=== PATIENT | male | born 1995 | race Caucasian/White ===

== ENCOUNTER 2020-05-03 07:54 | Emergency (ER) | payer OTHER ==
--- NOTE | 2020-05-03 08:13 | EDM.PDOC ---
ED HPI GENERAL MEDICAL PROBLEM - General Chief Complaint: Upper Extremity Injury/Pain Stated Complaint: HURT SHOULDERS Time Seen by Provider: 05/03/20 08:12 Source of Information: Reports: Patient, RN, RN Notes Reviewed History Limitations: Reports: No Limitations - History of Present Illness INITIAL COMMENTS - FREE TEXT/NARRATIVE: Pt presents to ER from NG duty at [facility] with c/o injury and pain to left shoulder the occurred when his slipped on Rodolfo's Ladder and caught himself with his arms pulled up overhead. Now his right shoulder is a little sore, but he cannot move the left shoulder without pain. The left shoulder cannot be raised above the breast level without severe pain. The pain radiates from the shoulder joint into the deltoid muscle region down the upper arm. Denies numbness or tingling. Denies any prior history of shoulder injury. Onset: Today, Sudden Duration: Constant Location: Reports: Upper Extremity, Left Quality: Reports: Ache Severity: Severe Improves with: Reports: Immobilization Worsens with: Reports: Movement Context: Reports: Activity, Exercise Associated Symptoms: Reports: No Other Symptoms Left Shoulder Pain Score (Numeric/FACES): 6 - Related Data Allergies Allergy/AdvReac Type Severity Reaction Status Date / Time No Known Allergies Allergy Verified 05/03/20 08:03 Home Meds: Home Meds . [No Known Home Meds] 05/03/20 [History] Past Medical History - Past Health History Medical/Surgical History: Denies Medical/Surgical History HEENT History: Reports: None Cardiovascular History: Reports: None Respiratory History: Reports: None Gastrointestinal History: Reports: None Genitourinary History: Reports: None Musculoskeletal History: Reports: None Neurological History: Reports: None Psychiatric History: Reports: None Endocrine/Metabolic History: Reports: None Hematologic History: Reports: None Immunologic History: Reports: None Oncologic (Cancer) History: Reports: None Dermatologic History: Reports: None - Infectious Disease History Infectious Disease History: Reports: None - Past Surgical History Head Surgeries/Procedures: Reports: None Social & Family History - Family History Family Medical History: Noncontributory - Tobacco Use Smoking Status *Q: Current Every Day Smoker Years of Tobacco use: 1 Packs/Tins Daily: 0.5 - Caffeine Use Caffeine Use: Reports: None - Recreational Drug Use Recreational Drug Use: No - Living Situation & Occupation Occupation: Employed Review of Systems - Review of Systems Review Of Systems: Comprehensive ROS is negative, except as noted in HPI. ED EXAM, GENERAL - Physical Exam Exam: See Below Exam Limited By: No Limitations General Appearance: Alert, WD/WN, No Apparent Distress Head: Atraumatic, Normocephalic Neck: Normal Inspection, Non-Tender, Full Range of Motion Respiratory/Chest: No Respiratory Distress Cardiovascular: Normal Peripheral Pulses Back Exam: Normal Inspection, Full Range of Motion Extremities: Normal Capillary Refill, Arm Pain (Left shoulder with mild generalized tenderness, decreased ROM, positive impingment sign, significant pain with abduction beyond horizontal. No visible swelling, bruising, redness, or deformity.). No: Joint Swelling Neurological: Alert, Oriented, CN II-XII Intact, Normal Cognition, Normal Gait, No Motor/Sensory Deficits Psychiatric: Normal Affect, Normal Mood Skin Exam: Warm, Dry, Intact, Normal Color, No Rash Course - Vital Signs Last Recorded V/S: Last Vital Signs Temp 98.6 F 05/03/20 08:03 Pulse 84 05/03/20 08:03 Resp 16 05/03/20 08:03 BP 138/76 05/03/20 08:03 Pulse Ox 100 05/03/20 08:03 - Radiology Interpretation Free Text/Narrative:: XR Left Shoulder: no acute process per Rad. report. Departure - Departure Time of Disposition: 08:42 Disposition: Home, Self-Care 01 Condition: Good Clinical Impression: Injury of left rotator cuff Qualifiers: Encounter type: initial encounter Qualified Code(s): S46.002A - Unspecified injury of muscle(s) and tendon(s) of the rotator cuff of left shoulder, initial encounter - Discharge Information *PRESCRIPTION DRUG MONITORING PROGRAM REVIEWED*: Not Applicable *COPY OF PRESCRIPTION DRUG MONITORING REPORT IN PATIENT ALLEN: Not Applicable Instructions: Rotator Cuff Tendinitis, Rotator Cuff Tear Forms: ED Department Discharge Additional Instructions: Rx: Ibuprofen 800mg Rest, and ice packs to area of pain. No overhead reaching, lifting, or repetitive use of left arm/shoulder. Follow up in clinic in 5 to 7 days for recheck. Sepsis Event Note (ED) - Evaluation Sepsis Screening Result: No Definite Risk - Focused Exam Vital Signs: Vital Signs Temp Pulse Resp BP Pulse Ox 05/03/20 08:03 98.6 F 84 16 138/76 100
--- NOTE | 2020-05-03 08:33 | CR ---
PROCEDURE INFORMATION: Exam: XR Left Shoulder Exam date and time: 05/03/2020 8:13 AM Age: 25 years old Clinical indication: Other: Left shoulder injury TECHNIQUE: Imaging protocol: XR Left shoulder. Views: 2 or more views. COMPARISON: No relevant prior studies available. FINDINGS: Bones/joints: There is no evidence of acute fracture or dislocation. No significant narrowing of the joint spaces. No lytic or blastic lesions. Soft tissues: No radiopaque foreign body within the soft tissues. IMPRESSION: No acute findings appreciated.
[2020-05-03] MEDS ORDERED: Ibuprofen 800 MG Tab PO ONE (08:45)
== END 2020-05-03 08:56 | disposition home or self-care (01) ==
LOC: DL.ED 07:54
DX: S46.002A Unspecified injury of muscle(s) and tendon(s) of the rotator cuff of left shoulder, initial encounter (principal); F17.210 Nicotine dependence, cigarettes, uncomplicated; W11.XXXA Fall on and from ladder, initial encounter
CPT/HCPCS: 73030; 99283; A9270